=== PATIENT | female | born 1945 | race Caucasian/White ===

== ENCOUNTER 2017-06-27 08:41 | Emergency (ER) | payer MEDICARE, BC ==
[~2017-06-27] VITALS: Ht 162.6 cm; Wt 83.5 kg
[~2017-06-27 08:41] MED LIST: ALDACTONE25 MG PO; BUSPIRONE HCL10 MG PO; CARDIZEM CD120 MG PO; CLONAZEPAM 1 MG1 M1 PO; HYDROCODONE-AP1 EAC6 PO; LISINOPRIL20 MG PO; LOPRESSOR25 PO; NITROGLYCERIN0.4 MG SUBLING; PERCOCET 10-321 EACH PO; PROZAC20 MG PO; SPIRONOLACTONE25 MG PO; ZOFRAN4 MG PO
[2017-06-27] MEDS ORDERED: PREDNISONE 20 M20 M1 PO (09:18)
[2017-06-27] MEDS ORDERED: ZPAK PO (09:18)
[2017-06-27] MEDS ORDERED: VENTOLIN HFA 1818 GM INH (09:18)
[2017-06-27 09:25] VITALS: BP 111/58
== END 2017-06-27 09:26 | disposition home or self-care (01) ==
LOC: M.ERS 08:41
DX: J20.9 Acute bronchitis, unspecified (principal); F17.210 Nicotine dependence, cigarettes, uncomplicated; Z91.041 Radiographic dye allergy status; Z88.2 Allergy status to sulfonamides

== ENCOUNTER → 2018-02-21 | Outpatient (CLI) | payer MEDICARE, BC ==
[~2018-02-21] MED LIST changes: +PREDNISONE 20 M20 M1 PO; +VENTOLIN HFA 1818 GM INH; +ZPAK PO
== END ==
LOC: M.RAD 10:05
DX: Z12.31 Encounter for screening mammogram for malignant neoplasm of breast (principal); M51.36 Other intervertebral disc degeneration, lumbar region; M43.27 Fusion of spine, lumbosacral region

== ENCOUNTER → 2018-07-13 | Outpatient (CLI) | payer MEDICARE, BC ==
[2018-07-13 13:45] LABS: CREATININE 1.1 mg/dL (0.6-1.3)
== END ==
LOC: M.LAB 07-04 12:39
PROVIDERS: Internal Medicine
DX: G93.0 Cerebral cysts (principal); J02.9 Acute pharyngitis, unspecified; R52 Pain, unspecified

== ENCOUNTER → 2018-07-20 | Outpatient (CLI) | payer MEDICARE, BC ==
[~2018-07-20] MED LIST changes: +DOXYCYCLINE 10100 MG PO; +NORCO 5-325 TA1 EAC1 PO
== END ==
LOC: M.ULTRA 12:53
DX: I99.8 Other disorder of circulatory system (principal); M20.5X1 Other deformities of toe(s) (acquired), right foot; R09.89 Other specified symptoms and signs involving the circulatory and respiratory systems; M19.90 Unspecified osteoarthritis, unspecified site; Z88.2 Allergy status to sulfonamides; Z91.041 Radiographic dye allergy status; Z79.899 Other long term (current) drug therapy

== ENCOUNTER 2018-07-30 15:32 | Emergency (ER) | payer MEDICARE, BC ==
[~2018-07-30] VITALS: Ht 162.6 cm; Wt 90.7 kg
[~2018-07-30 15:32] MED LIST changes: -DOXYCYCLINE 10100 MG PO; -NORCO 5-325 TA1 EAC1 PO
[2018-07-30] MEDS ORDERED: DOXYCYCLINE 10100 MG PO (15:42)
[2018-07-30 16:02] LABS: ABSOLUTE BASOPHILS 0.1 thou/uL (0.0-0.2); ABSOLUTE EOSINOPHILS 0.1 thou/uL (0.0-0.7); ABSOLUTE MONOCYTES 0.6 thou/uL (0.0-1.2); ABSOLUTE NEUTROPHILS 4.1 thou/uL (1.6-8.1); BASOPHILS 0.8 %; EOSINOPHILS 1.9 %; HEMATOCRIT 34.9 % (37.0-47.0); HEMOGLOBIN 11.7 gm/dL (12.0-15.0); LYMPHOCYTES 29.1 %; MCH 31.1 pg (26.0-34.0); MCHC 33.5 g/dL (28.0-37.0); MCV 92.7 fL (80.0-100.0); MONOCYTES 8.8 %; MPV 9.2 fl. (7.2-11.1); NUCLEATED RBCS 0 /100WBC; PLATELET COUNT* 235 thou/uL (150-400); POLYS 59.4 %; RBC 3.77 mil/uL (4.20-5.00); RDW-CV 13.5 % (10.5-14.5)
[2018-07-30 16:08] LABS: URINE BILIRUBIN NEGATIVE (Negative); URINE BLOOD NEGATIVE (Negative); URINE CLARITY CLEAR; URINE COLOR YELLOW; URINE GLUCOSE-RANDOM NEGATIVE (Negative); URINE KETONES NEGATIVE (Negative); URINE LEUKOCYTES-REFLEX NEGATIVE (Negative); URINE NITRITE-REFLEX NEGATIVE (Negative); URINE PROTEIN NEGATIVE (Negative); URINE SPECIFIC GRAVITY >= 1.030 (1.005-1.030); URINE UROBILINOGEN 0.2 E.U./dl (0.2-1.0)
[2018-07-30 16:12] LABS: ANION GAP 7 mmol/L (7-16); BUN 26 mg/dL (7-18); CALCIUM 8.6 mg/dL (8.5-10.1); CHLORIDE 101 mmol/L (98-107); CO2 29 mmol/L (21-32); CREATININE 1.2 mg/dL (0.6-1.3); GLUCOSE 111 mg/dL (70-99); POTASSIUM 4.7 mmol/L (3.5-5.1); SODIUM 137 mmol/L (136-145)
[2018-07-30 16:21] LABS: ALBUMIN 3.7 g/dL (3.4-5.0); ALKALINE PHOSPHATASE 83 U/L (46-116); LIPASE 115 U/L (73-393); SGOT 18 U/L (15-37); SGPT 24 U/L (30-65); TOTAL BILIRUBIN 0.2 mg/dL (<0.1-1.0); TOTAL PROTEIN 7.3 g/dL (6.4-8.2); TROPONIN-I LEVEL <0.06 ng/mL (<0.06)
[2018-07-30] MEDS ORDERED: NORCO 5-325 TA1 EAC1 PO (17:32)
[2018-07-30 18:20] VITALS: BP 130/58
== END 2018-07-30 18:22 | disposition home or self-care (01) ==
LOC: M.ERS 15:32
PROVIDERS: Physician Assistant
DX: R10.13 Epigastric pain (principal); R10.11 Right upper quadrant pain; Z98.890 Other specified postprocedural states; Z90.49 Acquired absence of other specified parts of digestive tract; Z88.1 Allergy status to other antibiotic agents; Z88.2 Allergy status to sulfonamides; Z91.041 Radiographic dye allergy status; Z88.8 Allergy status to other drugs, medicaments and biological substances; F17.210 Nicotine dependence, cigarettes, uncomplicated

== ENCOUNTER → 2018-08-09 | Outpatient (CLI) | payer MEDICARE, BC ==
[~2018-08-09] MED LIST changes: +DOXYCYCLINE 10100 MG PO; +NORCO 5-325 TA1 EAC1 PO
== END ==
LOC: M.MRI 14:07
DX: S60.37 Other superficial bite of thumb (principal); L03.011 Cellulitis of right finger; M19.041 Primary osteoarthritis, right hand; R60.0 Localized edema; W54.0XXD Bitten by dog, subsequent encounter

== ENCOUNTER → 2019-02-24 | Day surgery (SDC) | payer MEDICARE, BC ==
[~2019-02-24] MED LIST changes: +MOBIC7.5 MG PO; +PERCOCET 5-3251 EACH PO; +ZANAFLEX4 MG PO
[2019-02-24 06:57] LABS: HEMATOCRIT 36.1 % (37.0-47.0); HEMOGLOBIN 12.3 gm/dL (12.0-15.0); MCH 30.7 pg (26.0-34.0); MCHC 34.1 g/dL (28.0-37.0); MCV 89.9 fL (80.0-100.0); MPV 8.1 fl. (7.2-11.1); RBC 4.02 mil/uL (4.20-5.00); RDW-CV 13.9 % (10.5-14.5); WBC 6.4 thou/uL (4.0-11.0)
[2019-02-24 07:14] LABS: CALCIUM 9.2 mg/dL (8.5-10.1); CREATININE 1.2 mg/dL (0.6-1.3); POTASSIUM 4.4 mmol/L (3.5-5.1)
== END | disposition home or self-care (01) ==
LOC: M.SUR 06:09
PROVIDERS: Podiatrist
DX: M20.41 Other hammer toe(s) (acquired), right foot (principal); Z53.9 Procedure and treatment not carried out, unspecified reason; Z98.890 Other specified postprocedural states; Z79.899 Other long term (current) drug therapy

== ENCOUNTER → 2019-03-03 | Day surgery (SDC) | payer MEDICARE, BC ==
--- NOTE | 2019-03-03 13:03 | EKG ---
[place] [address] ELECTROCARDIOGRAM REPORT Name: FANY SHEARER Room: [facility]#: [id number] Admission: 03/03/19 Attend Phys: Ludy Ruff, Discharge: Date of : 49 Report #: [id number] THIS REPORT FOR: //name// [facility] Test Date: 2019-03-03 Test Time: 07:24:09 Pat Name: FANY SHEARER Department: Room: Gender: F Aircraft Time Clerk: : 1945 Requested By: Ludy Ruff Order Number: [id number] Reading MD: Mckay Mahan Measurements Intervals [place] Rate: 56 P: 62 IA: 244 QRS: 35 QRSD: 97 T: 29 QT: 447 QTc: 432 Interpretive Statements Sinus rhythm Prolonged IA interval Compared to ECG 02/20/2016 18:17:29 No significant changes Electronically Signed On 03-03-2019 13:03:08 TRAUMA COUNSELLOR by Mckay Mahan [email or web address] <ELECTRONICALLY SIGNED> By: Mckay Mahan MD, [facility] 03/03/19 1303 0724 07 Mckay Mahan MD, FACC /EPI
--- NOTE | 2019-03-08 23:10 | OP ---
[address] [address] OPERATIVE REPORT Name: MANFREDFANY KATALINA Room: [facility]#: [id number] Admission: 03/03/19 Attend Phys: Ludy Ruff, Discharge: Date of : 49 Report #: [id number] THIS REPORT FOR: //name// CC: Meliton Ruff DATE OF SERVICE: 03/03/2019 SURGEON: Ludy Ruff DPM STEAM FITTER: None. PREOPERATIVE DIAGNOSES: Hallux rigidus right foot as well as hammertoe deformities, right foot second, third and fourth toes. PROCEDURES PERFORMED: 1. Total joint implant, first metatarsophalangeal joint, right foot. 2. Arthrodesis proximal interphalangeal joint, second toe, right foot. Arthrodesis proximal interphalangeal joint, third toe, right foot, and arthrodesis proximal interphalangeal joint, fourth toe, right foot. ANESTHESIA TYPE: General with local. ESTIMATED BLOOD LOSS: 5 mL. IMPLANTS USED: [employer] size 3 Silastic implant as well as 345 double ended K wires. INJECTABLES: A 1:1 mixture of 0.5% Marcaine plain and 1% lidocaine plain. A total of 20 mL used. COMPLICATIONS: None. HEMOSTASIS: Pneumatic ankle tourniquet at 250 mmHg. DESCRIPTION OF PROCEDURE: The patient was brought to the operating room and placed on the operating table in a supine position. After adequate IV sedation was obtained, a local infiltrative block was then placed about the patient's right foot utilizing 20 mL of 1:1 mixture of 0.5% Marcaine plain and 1% lidocaine plain. At this time, a pneumatic ankle tourniquet was also placed about the patient's right ankle with adequate padding noted. The patient's right foot was then scrubbed, prepped and draped in the usual aseptic manner. An Esmarch bandage was also utilized to exsanguinate the patient's right foot. The pneumatic ankle tourniquet was then inflated to 250 mmHg. Attention was then directed to the dorsal aspect of the [place] [address] OPERATIVE REPORT Name: MANFREDFANY Room: [facility].#: [id number] Admission: 03/03/19 Attend Phys: Ludy Ruff, Discharge: Date of : 49 Report #: [id number] the right foot where a 6 cm linear longitudinal incision was made medial and parallel to the tendon of the extensor hallucis longus tendon and involved the contour deformity. Incision was then deepened through the subcutaneous tissues using sharp and blunt dissection. Care was taken to identify and retract all vital neural and vascular structures. All bleeders were ligated and cauterized as necessary. At this time, a linear capsulotomy was then performed over the dorsal aspect of the first metatarsophalangeal joint. The periosteal and capsular structures were then carefully dissected free of their osseous attachments and reflected medially and laterally, thus exposing the head of the first metatarsal and the base of the proximal phalanx of the hallux, which were both noted to be hypertrophied at the operative site. It is also important to note that there was little to no cartilage along the first metatarsal head upon excision. Next, utilizing an oscillating bone saw, approximately 1 cm of the base of the proximal phalanx was then resected and passed from the operative field as well as the head of the first metatarsal just proximal to the articular surface. After determining the appropriate size of the implant, any osteophytes and prominences were also resected at this time utilizing a sharp rongeur, rotary bur and hand rasp. After determining the appropriate size of the implant, a drill hole was then fashioned into the proximal phalanx as well as the remaining head of the first metatarsal. This was also done through a hand broaching technique. At that time, the patient was noted to have hard bone quality at this time too. The broaching occurred up until a desired size of the implant at this time. Then, finally once the size and placement of the implant was noted to be adequate, surgical site was copiously irrigated with sterile normal saline and utilizing atraumatic technique, a [employer] size 3 silicone implant was then inserted into the resected joint space. The fit of the implant was noted to be adequate and aligned well without deformity to the joint space. At this time, again the joint was copiously irrigated with sterile normal saline and the deep tissue structures were then reapproximated utilizing 2-0 Vicryl to the periosteum capsular structures and then 4-0 Vicryl to the subcuticular and subcutaneous tissues. The skin was reapproximated utilizing 4-0 nylon in a running interlocking stitch fashion. Attention was then directed to digits 2, 3 and 4 of the patient's right foot at the proximal interphalangeal joint where converging elliptical incisions were then made down to the level of subcutaneous tissue and a wedge of skin was then removed at this time. A transverse tenotomy and capsulotomy was then performed at this time to expose the head of the proximal phalanx. The ligamentous and capsular structures were reflected medially and laterally at this time to each digit. It is important to note little to no joint fluid was noted to these joints. The head of the proximal phalanx was then resected utilizing a sagittal saw as well as the base of the middle phalanx. These were passed from the operative field. Once the joint space was prepared, utilizing three 0.045 K wires in a retrograde technique through the [place] [address] OPERATIVE REPORT Name: FANY SHEARER Room: [facility]#: [id number] Admission: 03/03/19 Attend Phys: Ludy Ruff, Discharge: Date of : 49 Report #: [id number] The fusion of these digits was then completed at this time. Skin was reapproximated as well as the tendon utilizing 4-0 Vicryl and 4-0 nylon. The tips of the K-wires were cut to size and jurgin balls placed to protect from sharp edge. The pneumatic ankle tourniquet was then deflated at this time and there was a prompt hyperemic response noted to all digits of the patient's right foot. Site was then dressed with Adaptic, 4 x 4 gauze, Kerlix and an Ambrose bandage. The patient tolerated the procedure and anesthesia well and was transferred from the operating room to the recovery room with vital signs stable and vascular status intact to the right lower extremity. <ELECTRONICALLY SIGNED> By: Ludy Ruff DPM 03/08/19 2310 1547 Alfonso Ruff, [place] /refugio
== END | disposition home or self-care (01) ==
LOC: M.SUR 06:01
DX: M20.21 Hallux rigidus, right foot (principal); M20.41 Other hammer toe(s) (acquired), right foot; Z98.890 Other specified postprocedural states; Z79.899 Other long term (current) drug therapy; Z88.2 Allergy status to sulfonamides; Z87.19 Personal history of other diseases of the digestive system

== ENCOUNTER → 2019-04-18 | Outpatient (CLI) | payer MEDICARE, BC ==
[2019-04-18 13:57] LABS: ABSOLUTE EOSINOPHILS 0.1 thou/uL (0.0-0.7); ABSOLUTE LYMPHOCYTES 1.5 thou/uL (0.8-5.3); ABSOLUTE MONOCYTES 0.8 thou/uL (0.0-1.2); ABSOLUTE NEUTROPHILS 8.3 thou/uL (1.6-8.1); BASOPHILS 0.3 %; HEMATOCRIT 34.4 % (37.0-47.0); HEMOGLOBIN 11.8 gm/dL (12.0-15.0); LYMPHOCYTES 13.6 %; MCH 30.3 pg (26.0-34.0); MCHC 34.2 g/dL (28.0-37.0); MCV 88.7 fL (80.0-100.0); MONOCYTES 7.2 %; NUCLEATED RBCS 0 /100WBC; PLATELET COUNT* 285 thou/uL (150-400); POLYS 77.9 %; RBC 3.88 mil/uL (4.20-5.00); RDW-CV 13.2 % (10.5-14.5); WBC 10.7 thou/uL (4.0-11.0)
[2019-04-18 14:16] LABS: CALCIUM 9.1 mg/dL (8.5-10.1); CREATININE 1.4 mg/dL (0.6-1.3)
[2019-04-18 14:20] LABS: ALBUMIN 3.9 g/dL (3.4-5.0); TOTAL BILIRUBIN 0.3 mg/dL (<0.1-1.0); TOTAL PROTEIN 7.7 g/dL (6.4-8.2)
== END ==
LOC: M.CT 13:31
PROVIDERS: Internal Medicine
DX: K57.30 Diverticulosis of large intestine without perforation or abscess without bleeding (principal); R11.0 Nausea; R14.2 Eructation

== ENCOUNTER 2020-05-20 09:18 | Emergency (ER) | payer MEDICARE, BC ==
[~2020-05-20] VITALS: Ht 162.6 cm; Wt 86.2 kg
[2020-05-20] MEDS ORDERED: VEGETABLE LAXA8.6 M1 PO (09:46)
[2020-05-20] MEDS ORDERED: MEDROLDOSEPACK PO (10:37)
[2020-05-20] MEDS ORDERED: NABUMETONE 750750 M1 PO (10:37)
[2020-05-20] MEDS ORDERED: PERCOCET 5-3251 EACH PO (11:56)
[2020-05-20 12:04] VITALS: BP 130/63
== END 2020-05-20 12:05 | disposition home or self-care (01) ==
LOC: M.ERS 09:18
DX: M54.41 Lumbago with sciatica, right side (principal); M16.0 Bilateral primary osteoarthritis of hip; F17.210 Nicotine dependence, cigarettes, uncomplicated; Z88.1 Allergy status to other antibiotic agents; Z91.041 Radiographic dye allergy status; Z88.2 Allergy status to sulfonamides; Z90.49 Acquired absence of other specified parts of digestive tract; Z98.890 Other specified postprocedural states

== ENCOUNTER → 2020-07-11 | Outpatient (CLI) | payer MEDICARE, BC ==
[~2020-07-11] MED LIST changes: +MEDROLDOSEPACK PO; +NABUMETONE 750750 M1 PO; +VEGETABLE LAXA8.6 M1 PO
== END ==
LOC: M.RAD 06-27 13:09
PROVIDERS: ATTEND Internal Medicine
DX: Z78.0 Asymptomatic menopausal state (principal)